=== PATIENT | male | born 1945 | race Caucasian/White ===

== ENCOUNTER 2020-10-13 12:20 | Day surgery (SDC) | payer OTHER ==
[2020-10-08 10:46] LABS: Basophils # (auto) 0.1 10 ^3/uL (0-0.2); Lymphocytes # (auto) 0.6 10 ^3/uL (0.4-5.4); Nucleated Red Blood Cells % 0.1 %
[2020-10-08 10:49] LABS: Basophils % (auto) 1.5 % (0.0-2.0); Eosinophils # (auto) 0.1 10 ^3/uL (0-0.8); Eosinophils % (auto) 1.6 % (0.0-7.0); Hematocrit 33.5 % (41.0-53.0); Hemoglobin 10.6 g/dL (13.5-17.5); Lymphocytes % (auto) 7.6 % (10.0-50.0); Mean Corpuscular Hemoglobin 25.7 pg (28.0-32.0); Mean Corpuscular Hgb Conc. 31.7 g/dL (32.0-36.0); Monocytes # (auto) 0.8 10 ^3/uL (0-1.3); Monocytes % (auto) 9.6 % (0.0-12.0); Neutrophils # (auto) 6.3 10 ^3/uL (1.6-8.6); Neutrophils % (auto) 79.7 % (37.0-80.0); Red Blood Cells 4.14 10^6/uL (4.5-5.90); Red Cell Distribution Width 19.7 % (11.8-14.3); White Blood Cell 7.9 10^3/uL (4.4-10.8)
[2020-10-08 11:01] LABS: INR 1.03 (0.9-1.15); Partial Thromboplastin Time 29.7 sec (23.0-31.2)
[2020-10-08 12:19] LABS: Albumin 3.5 g/dL (3.4-5.0); Calcium 8.8 mg/dL (8.5-10.1); Potassium 4.6 mmol/L (3.5-5.1)
[2020-10-08 12:24] LABS: Bilirubin, Total 0.3 mg/dL (0.2-1.0)
[~2020-10-13] VITALS: Ht 182.9 cm; Wt 81.6 kg
[~2020-10-13 12:20] MED LIST: ASPI1TAB20 PO; ATOR10TA PO; BUPR100T15 PO; DILT-29 PO; FOLITAB22 PO; LISI2.5T47 PO; METH2.5T PO; OMEP20TA PO
[2020-10-13] MEDS: fentaNYL CITRATE 100 MCG/2 ML VL ONE ×2 (13:16→13:21)
[2020-10-13] MEDS: MIDAZOLAM HCL 5 MG/ML-1ML VIAL ONE ×3 (13:16→13:37)
[2020-10-13] MEDS: diphenhdrAMINE HCL 50 MG/1 ML VL ONE ×2 (13:16→13:28)
[2020-10-13 14:25] VITALS: BP 134/68
== END 2020-10-13 14:50 | disposition home or self-care (01) ==
LOC: GI 12:20
PROVIDERS: ATTEND Internal Medicine Gastroenterology
DX: Z12.11 Encounter for screening for malignant neoplasm of colon (principal); D12.4 Benign neoplasm of descending colon; K64.8 Other hemorrhoids; K63.89 Other specified diseases of intestine; I10 Essential (primary) hypertension; Z20.822 Contact with and (suspected) exposure to COVID-19; Z98.890 Other specified postprocedural states; Z79.899 Other long term (current) drug therapy; Z79.82 Long term (current) use of aspirin
CPT/HCPCS: 36415; 45380; 45385; 80053; 85025; 85610; 85730; J1200; J2250; J3010; J7030; U0003; 99153; G0500